=== PATIENT | female | born 1970 | race Caucasian/White ===

== ENCOUNTER 2024-02-27 09:32 | Outpatient (CLI) | payer OTHER, SELFPAY ==
[2024-02-27 10:11] LABS: Eosinophils # 0.1 K/mm3 (0.0-0.4); Eosinophils % 2.5 % (0.1-12.0); Hematocrit 43.4 % (37.0-47.0); Hemoglobin 14.4 g/dL (12.2-16.2); Lymphocytes # 1.3 K/mm3 (0.7-4.5); Lymphocytes % 35.9 % (10-50); Mean Corpuscular HGB Conc 33.3 g/dL (31.8-35.4); Mean Corpuscular Hemoglobin 30.9 pg (27.0-31.2); Mean Platelet Volume 7.4 fl (7.4-10.4); Monocytes # 0.3 K/mm3 (0.1-1.0); Monocytes % 7.6 % (1.7-9.3); Neutrophils % 52.9 % (37.0-80.0); Platelet Count 356 K/mm3 (142-424); Red Blood Count 4.66 M/mm3 (4.20-5.40); Red Cell Distribution Width 13.2 % (11.5-17.5); White Blood Count 3.7 K/mm3 (4.8-10.8)
[2024-02-27 11:17] LABS: Alanine Aminotransferase 33 U/L (12-78); Albumin/Globulin Ratio 1.7 (1.1-1.8); Alkaline Phosphatase 81 U/L (38-126); Amylase 67 U/L (30-110); Aspartate Amino Transferase 39 U/L (14-36); Bilirubin,Total 0.5 mg/dl (0.2-1.3); Blood Urea Nitrogen 9 mg/dl (7-17); Calcium 9.7 mg/dl (8.4-10.2); Carbon Dioxide 29 mmol/L (22.0-30.0); Chloride 104 mmol/L (98-107); Estimated Glomerular Filt Rate 88 ml/min (>60); GFR (African American) 107 ML/MIN (>60); Globulin 2.4 g/dL (1.3-3.2); Glucose 88 mg/dl (74-100); Sodium 138 mmol/L (136-145); Total Protein,Serum 6.4 g/dl (6.3-8.2)
[2024-02-27 12:24] LABS: Vitamin B12 375 pg/mL (239-931)
[2024-02-28 19:25] LABS: Pancreatic Elastase, Fecal >800 (>200)
[2024-03-01 18:08] LABS: Vitamin B1 125.9 nmol/L (66.5-200.0)
[2024-03-04 02:43] LABS: 1,25 Dihydroxy Vitamin D 50 pg/mL (.); 1,25-Dihydroxy, Vitamin D-2 <10 pg/mL (.); 1,25-Dihydroxy, Vitamin D-3 50 pg/mL (.)
[2024-03-05 02:22] LABS: Vitamin B6 12.3 ug/L (3.4-65.2)
== END 2024-02-27 23:59 | disposition home or self-care (01) ==
LOC: LAB 09:34
PROVIDERS: PCP Internal Medicine; Visit Provider Internal Medicine Gastroenterology
DX: R10.11 Right upper quadrant pain (principal); R19.7 Diarrhea, unspecified; R14.0 Abdominal distension (gaseous); L65.9 Nonscarring hair loss, unspecified; K74.69 Other cirrhosis of liver; B19.20 Unspecified viral hepatitis C without hepatic coma
CPT/HCPCS: 36415; 80053; 82150; 82607; 82652; 82656; 82746; 84207; 84425; 85025